=== PATIENT | male | born 1970 | race Caucasian/White ===

== ENCOUNTER 2018-06-06 06:49 | Inpatient (IN) | payer BC ==
--- NOTE | 2018-05-29 21:30 | HP ---
HISTORY AND PHYSICAL: DATE OF ADMISSION/SURGERY: 06/06/18 DATE OF OFFICE VISIT: 05/27/18 SURGEON: Vianey Guardado MD * (DICTATED BY NACHO FAIR) PROCEDURE: Left total hip arthroplasty. CHIEF COMPLAINT: Left hip pain. HISTORY OF PRESENT ILLNESS: Mr. Stone is a 47-year-old gentleman with continued complaints of left hip pain. He has failed conservative treatment and has elected to proceed with surgery which is scheduled for 06/06/[address] Guardado. PAST MEDICAL HISTORY: High cholesterol, anxiety, alcohol addiction, and COPD. PAST SURGICAL HISTORY: Oral surgery. CURRENT MEDICATIONS: 1. Lisinopril/hydrochlorothiazide 30 mg daily. 2. Escitalopram 20 mg daily. 3. Ibuprofen 800 mg as needed. 4. Zolpidem tartrate 10 mg q.h.s. 5. Propranolol 20 mg twice a day. 6. Amitriptyline. 7. Buspirone. 8. Amlodipine 5 mg daily. ALLERGIES: No known drug allergies. FAMILY HISTORY: Diabetes, cancer, RA, hypertension, and coronary artery disease. 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 He drinks approximately 2 to 3 alcoholic beverages per night. Denies the use of tobacco or illicit drugs. REVIEW OF SYSTEMS: A complete 14-point review of systems was reviewed with the patient. It was positive for COPD. He denies history of DVT, PE, hepatitis, HIV , or anesthesia problems. PHYSICAL EXAMINATION GENERAL: He is well developed, well nourished, in no acute distress. VITAL SIGNS: He stands 5 feet 7 inches tall, weighs 218 pounds. His blood pressure is 140/86 and his heart rate is 64. HEENT: Normocephalic, atraumatic. NECK: Supple. No palpable lymph nodes. PULMONARY: The lungs are clear to auscultation bilaterally. CARDIO: Regular rate and rhythm. Strong S1, S2. ABDOMEN: Soft, nontender, and nondistended. NEUROLOGICAL: He is alert and oriented x3. MUSCULOSKELETAL: Left lower extremity: The skin is intact. There are no open wounds or abrasions. He walks with an antalgic-type gait favoring his left hip. He has decreased internal and external rotation of the left hip. ASSESSMENT AND PLAN: Mr. Stone is a 47-year-old gentleman with continued complaints of left hip pain. He has failed conservative treatment and elected to proceed with a left total hip arthroplasty. His surgery is scheduled for 06/06/[address] Guardado discussed the risks and benefits of the surgery at today's visit and all of his questions were answered. He will follow up with Dr. Guardado 2 weeks after the surgery. NACHO FAIR [id number]/[facility] #: [id number]
[~2018-06-06 06:49] MED LIST: Buffered Lidocaine 0.9% SYRIN* 5 ML/SYR SYRINGE INTRADERM ONE; Dexamethasone IV* 4 MG/ML 1 ML (4 MG) IV SLOW PU ONE; Famotidine IV* 10 MG/ML 2 ML (20 mg) IV ONE; Gabapentin CAP(*) 300 MG PO ONE; Scopolamine 1.5 mg* PATCH TRANSDERM ONE; celeCOXIB CAP* 200 MG PO ONE
--- OUTSIDE RECORDS SUMMARY | 2018-06-06 06:52 | XMS REPORT | Continuity of Care Document ---
:1970 External Reference #:[id number] Author Name Salome Mcknight Care Team Providers Name Role Phone HCP/LW on file Primary Care Physician Unavailable Payers Type Date Identification Numbers Payment Provider Subscriber Effective: Policy Number: [facility] Omer Stone 2017 [id number] Ind/Ppo/Hmo/Pos PayID: [id number] [address] [place] [address] Advance Directives Description No Information Available Problems Date Description Provider Status Onset: 02/02/2014 Tobacco user Gurmeet Guy M.D. Active Onset: 02/02/2014 Difficulty breathing Gurmeet Guy M.D. Active Onset: 02/02/2014 Benign essential hypertension Gurmeet Guy M.D. Active Onset: 02/02/2014 Nondependent alcohol abuse in Gurmeet Guy M.D. Active remission Onset: 02/02/2014 Nondependent cocaine abuse in Gurmeet Guy M.D. Active remission Onset: 03/30/2015 Generalized anxiety disorder Gurmeet Guy M.D. Active Onset: 03/30/2015 Essential hypertension Gurmeet Guy M.D. Active Onset: 03/30/2015 Insomnia Gurmeet Guy M.D. Active Family History Date Family Member(s) Problem(s) Comments General Prostate Cancer Pat uncle Father CAD Had CABG in his late 50s Father Prostate Cancer in his 50s Mother General Health Good Children None Siblings 2 1 brother, 1 sister, both in good health. Social History Type Date Description Comments Sex Unknown Education Highest level completed, 11th grade Marital Status Single Lives With Cousin (Virginia Martinez) and cousin's daughter (Kiera). 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 Quit summer 2013. Smoking Status Reviewed: 03/30/15 Former Cigarette at peak smoked Smoker ~1.5ppd; started at age 12 and was smoking 1ppd by his mid teens. Quit summer 2013. ETOH Use 02/15/2018 Currently consumes 2 mixed vodka alcohol drinks/night, not measured but admittedly "good sized" shots; was a heavy drinker until he moved here from [place] in Recreational Drug Use 02/02/2014 Denies Drug Use Recreational Drug Use Former Drug User cocaine; stopped in , part of the reason for moving here from [place] Currently Active Patient is currently not sexually active Condom Use Uses Condoms Age [address] [place] 17 Years Old # Partners in a over 10 Lifetime Additional Info Sexual preference is women Allergies, Adverse Reactions, Alerts Description No Known Drug Allergies Medications Medication Date Status Form Strength Qnty SIG Indications Ordering Provider Buspirone HCL 05/20/ Active Tablets 10mg 1 tab by mouth F41.1 Silcoff, 2018 twice a day Gurmeet for anxiety M.D. Polyethylene 02/07/ Active Powder 3350NF 527uni use 07/03 cap K59.00 Silcoff, Glycol 3350 2015 ts full in 4 oz Gurmeet, of fluid every M.D. day; titrate as needed; for constipation Amlodipine 12/20/ Active Tablets 5mg 90tabs Take One I10 Silcoff, Besylate 2016 Tablet By Sherrill Levi Every M.D. Evening For High Blood Pressure Propranolol 09/16/ Active Tablets 20mg 60tabs Take One I10 Silcoff, HCL 2016 Tablet By Gurmeet Mouth Twice A M.D. Day For High Blood Pressure And Anxiety F41.1 Propranolol HCL 09/17/2015 Active Tablets 20mg 60tabs Take One I10 Silcoff, Tablet By Kindra Levi Mouth Twice A Day For High Blood Pressure And Anxiety F41.1 Propranolol HCL 09/17/2015 Active Tablets 20mg 60tabs Take One I10 Silcoff, Tablet By Kindra Levi Mouth Twice A Day For High Blood Pressure And Anxiety F41.1 Ibu 06/08/2015 Active Tablets 800mg 90tabs Take One M25.50 Sopchak, Tablet By Sherrill Granado D.O. Three Times A Day as Needed For Joint Pain Lisinopril-[place] 06/08/2015 Active Tablets 20-12.5m 180tabs Take Two I10 Silcoff, chlorothiazide g Tablets By Sherrill Levi.DBrady Every Morning For High Blood Pressure Amitriptyline 06/08/2015 Active Tablets 10mg 100tabs Take One G47.00 Silcoff, HCL Tablet By Sherrill Levi M.DBrady 30-60 Minutes Before Bed For Sleep- May Increase By 1 Tablet Every 3 Nights To A Max Of 5 Tablets Per Night Zolpidem 12/23/2014 Active Tablets 10mg 30tabs 1 by mouth G47.00 Silcoff, Tartrate every Gurmeet, night at M.D. bedtime as needed for sleep; you should only take this if you have 8 hours to devote to sleep Escitalopram 10/14/2014 Active Tablets 20mg 30tabs Take One F41.9 Silcoff, Oxalate Tablet By Sherrill Levi M.DBrady Every Day For Anxiety F41.1 Buspirone HCL 02/08/2016 Hx Tablets 10mg 180tabs Take Two Tablets F41.1 Silcoff, - By Mouth Three Gurmeet 05/21/2018 Times A Day For M.D. Anxiety Buspirone HCL 12/21/2015 Hx Tablets 10mg 120tabs 2 by mouth twice a F41.1 Silcoff, - day for anxiety Gurmeet, 02/08/2016 M.D. Viagra 12/21/2015 Hx Tablets 100mg 6tabs 1/2-1 by mouth N52.9 Silcoff, - every day as Gurmeet 05/20/2018 needed for M.D. erectile dysfunction; max 1 dose/day Propranolol HCL 08/04/2015 Hx Tablets 40mg 30tabs Taje 1/2 Tablet By I10 Malena, - Mouth Two Times A Gurmeet, 09/17/2015 Day For Blood M.D. Pressure And Anxiety F41.1 Buspirone HCL 06/08/2015 - Hx Tablets 10mg 60tabs Take 1+1/2 F41.1 Silcoff, 12/21/2015 Tablets By Kindra Levi Mouth Two Times A Day For Anxiety Buspirone HCL 03/30/2015 - Hx Tablets 10mg 60tabs 1/2 by mouth F41.1 Silcomaite, 06/08/2015 twice a day Kindra Levi for 1-2 weeks then increase to 1 pill 2x/day; for anxiety PT For Right 12/23/2014 - Hx evaluate and 719.41 Silemma, Shoulder Pain 03/25/2015 treat, Kindra Levi And Tennis modalities as Elbow needed, instruct in hep 726.32 726.10 Ibuprofen 12/22/2014 - Hx Tablets 200mg OTC taking 2 Unknown 06/08/2015 tab to 4 tab with a snack for your pain as needed Escitalopram 09/02/2014 - Hx Tablets 10mg 30tabs 1/2 by 300. Silcoff, Oxalate 10/14/2014 mouth every 00 Gurmeet, day for 1 M.D. week then 1 tablet daily; for anxiety Chantix 09/02/2014 - Hx Tablets 1mg 1/2 by 305. Silcoff, 10/03/2014 mouth twice 1 Gurmeet, a day for M.D. 2wks then 1/2 tab in am only until supply runs out Dulera 09/02/2014 - Hx Aerosol 100-5mcg/ 120samp 2 puffs 786. Silcoff, 10/03/2014 Act le twice a day 09 Gurmeet (gargle M.D. after use) 493.10 Spiriva 09/02/2014 - Hx Capsules 18mcg 10samples inhale the 786.09 Malena Handihaler 10/14/2014 contents of Gurmeet 1 capsule M.D. daily; try this after finishing Dulera 493.10 Lisinopril-Hydrochlorothiazide 09/02/2014 Hx Tablets 20-25mg 90tabs Take One I10 Silcomaite, - Tablet By Gurmeet, 06/08/2015 Mouth M.D. Every Morning For High Blood Pressure Zolpidem Tartrate 06/19/2014 Hx Tablets 10mg 15tabs 1 by 780. Taniacoff, - mouth 52 Gurmeet, 12/23/2014 every M.D. other night at bedtime as needed for sleep; you should only take this if you have 8 hours to sleep Lisinopril-Hydrochlorothiazide 05/11/2014 Hx Tablets 10-12.5m 30tabs 1 by 401. Malena, - g mouth 1 Gurmeet, 09/02/2014 every M.DBrady morning for high blood pressure Flovent Diskus 05/11/2014 Hx Aerosol 250mcg/B 60units 1 puff 786. Malena, - list 2x/day; Gurmeet, 09/02/2014 gargle M.D. after use 493.10 Trazodone HCL 05/11/2014 - Hx Tablets 50mg 60tabs 1/2-2 by 780.52 Silcoff, 05/29/2014 mouth every Kindra Levi night at bedtime as needed for sleep (take it 1/2-1hr before bed) Advair Diskus 03/09/2014 - Hx Aerosol 250-50mc 60units inhale 1 786.09 Taniacoff, 05/11/2014 g/Dose puff twice Kindra Levi daily; gargle after use 493.10 Chantix 03/09/2014 - Hx Tablets 1[facility] 45tabs [facility] and 1/2 Kindra Levi pill every late night/early paula (ideally after breakfast and supper); take w/ a lot of water No Active 02/02/2014 - Hx Unknown Medications 02/02/2014 Chantix 02/02/2014 - Hx Tablets 1mg 60tabs 1/2 pill once 305.1 Silcoff, 03/09/2014 daily for 3 Kindra Levi days then 1/2 pill twice daily for 4 days then 1 pill twice daily Immunizations CPT Code Status Date Vaccine Lot # 61893 Given 05/21/2018 Influenza Virus Vaccine, Quadrivalent, Split, [id number] Preservative Free 74997 Given 08/17/2017 Influenza Virus Vaccine, Quadrivalent, Split, [id number] Preservative Free 44336 Given 04/17/2016 Influenza Virus Vaccine, Quadrivalent, Split, [id number] Preservative Free 23770 Given 06/08/2015 Influenza Virus Vaccine, Quadrivalent, Split, [id number] Preservative Free 98442 Given 03/09/2014 Pneumococcal Immunization [id number] 91115 Given 03/09/2014 Influenza Virus Vaccine, Quadrivalent, Split, [id number] Preservative Free 56761 Given 02/15/2010 Adacel or Boostrix, TDaP Vital Signs Date Vital Result Comment 05/21/2018 10:58am BP Systolic 142 mmHg BP Diastolic 94 mmHg BP Systolic Recheck 150 mmHg R arm sitting BP Diastolic Recheck 86 mmHg R arm sitting Heart Rate 60 /min reg Respiratory Rate 14 /min not laboured Height 66.75 inches 5'6.75" Weight 209.00 lb BMI (Body Mass Index) 33.0 kg/m2 02/15/2018 8:55am BP Systolic 112 mmHg BP Diastolic 78 mmHg BP Systolic Recheck 124 mmHg R arm sitting BP Diastolic Recheck 80 mmHg R arm sitting Weight 223.00 lb with sneakers 08/17/2017 8:58am BP Systolic 140 mmHg BP Diastolic 74 mmHg BP Systolic Recheck 134 mmHg R arm sitting BP Diastolic Recheck 82 mmHg R arm sitting Heart Rate 60 /min reg Height 67 inches 5'7" Weight 218.00 lb BMI (Body Mass Index) 34.1 kg/m2 01/30/2017 11:32am BP Systolic 110 mmHg BP Diastolic 60 mmHg Height 68.5 inches 5'8.50" with sneakers Weight 214.00 lb with sneakers BMI (Body Mass Index) 32.1 kg/m2 07/25/2016 8:44am BP Systolic 140 mmHg BP Diastolic 82 mmHg BP Systolic Recheck 132 mmHg R arm sitting BP Diastolic Recheck 84 mmHg R arm sitting Height 68.5 inches 5'8.50" with shoes Weight 214.00 lb with shoes BMI (Body Mass Index) 32.1 kg/m2 04/17/2016 9:14am BP Systolic 128 mmHg BP Diastolic 82 mmHg BP Systolic Recheck 134 mmHg R arm sitting BP Diastolic Recheck 86 mmHg R arm sitting Weight 214.00 lb with work boots 02/08/2016 8:40am BP Systolic 130 mmHg BP Diastolic 80 mmHg BP Systolic Recheck 130 mmHg R arm sitting BP Diastolic Recheck 82 mmHg R arm sitting Weight 206.00 lb w/shoes 12/21/2015 8:36am BP Systolic 138 mmHg BP Diastolic 90 mmHg BP Systolic Recheck 152 mmHg R arm sitting BP Diastolic Recheck 90 mmHg R arm sitting Heart Rate 60 /min reg Height 68 inches 5'8" with sneakers Weight 207.00 lb with sneakers BMI (Body Mass Index) 31.5 kg/m2 09/17/2015 9:11am BP Systolic 116 mmHg BP Diastolic 80 mmHg BP Systolic Recheck 128 mmHg R arm sitting BP Diastolic Recheck 84 mmHg R arm sitting Heart Rate 64 /min reg Weight 207.00 lb boots on 08/04/2015 8:59am BP Systolic 138 mmHg BP Diastolic 90 mmHg BP Systolic Recheck 150 mmHg R arm sitting BP Diastolic Recheck 98 mmHg R arm sitting Heart Rate 74 /min reg Weight 204.00 lb with boots 06/08/2015 8:47am BP Systolic 148 mmHg BP Diastolic 85 mmHg BP Systolic Recheck 160 mmHg R arm sitting BP Diastolic Recheck 92 mmHg R arm sitting Heart Rate 64 /min reg Weight 197.50 lb with boots 03/30/2015 8:30am BP Systolic 140 mmHg BP Diastolic 82 mmHg Weight 192.00 lb w/workboots 12/23/2014 8:27am BP Systolic 138 mmHg BP Diastolic 80 mmHg Weight 187.00 lb w/shoes 10/14/2014 9:39am BP Systolic 142 mmHg BP Diastolic 82 mmHg BP Systolic Recheck 138 mmHg R arm sitting BP Diastolic Recheck 80 mmHg R arm sitting Height 67 inches 5'7" Weight 190.00 lb BMI (Body Mass Index) 29.8 kg/m2 09/02/2014 8:47am BP Systolic 166 mmHg BP Diastolic 90 mmHg Weight 185.50 lb dec taking off boots 06/19/2014 9:33am BP Systolic 160 mmHg BP Diastolic 80 mmHg BP Systolic Recheck 152 mmHg R arm sitting BP Diastolic Recheck 78 mmHg R arm sitting Weight 191.00 lb w/work boots. 180 at home per pt 05/11/2014 11:29am BP Systolic 180 mmHg BP Diastolic 98 mmHg BP Systolic Recheck 184 mmHg R arm sitting BP Diastolic Recheck 96 mmHg R arm sitting Weight 187.00 lb w/boots 03/09/2014 10:07am BP Systolic 158 mmHg BP Diastolic 86 mmHg BP Systolic Recheck 158 mmHg R arm sitting BP Diastolic Recheck 86 mmHg R arm sitting Weight 179.00 lb Shoes on 02/02/2014 2:34pm BP Systolic 150 mmHg BP Diastolic 88 mmHg BP Systolic Recheck 160 mmHg R arm sitting BP Diastolic Recheck 80 mmHg R arm sitting Heart Rate 80 /min reg Respiratory Rate 12 /min not laboured Height 66.50 inches 5'6.50" Weight 166.00 lb BMI (Body Mass Index) 26.4 kg/m2 Results Test Date Facility Test Result H/L Range Note Urine Micro Inhouse 05/21/2018 In House [facility] WBC 3 1 [facility]a RBC - [facility]a Casts - Ua Epi - Ua Other - Ua Glucose - Ua Bilirubin - Ua Ketones - Ua Specific Marquez 1.010 Ua Blood - Ua PH 5.0 Ua Protein - Ua Urobilinogen - Ua Nitrite - Ua Leukocytes tr Basic Metabolic Panel 05/21/2018 [facility] Sodium 137 mmol/L N 135- 145 [phone] Chloride 102 mmol/L N 101-111 Co2 Carbon Dioxide 29 mmol/L N 22-32 Glucose 116 mg/dL High 70-100 Blood Urea Nitrogen 33 mg/dL High 6-24 Creatinine 1.55 mg/dL High 0.67-1.17 BUN/Creatinine Ratio 21.3 High 8-20 Calcium 9.9 mg/dL N 8.6-10.3 Egfr Non- 48.7 >60 Egfr 59.0 >60 2 Potassium 5.1 mmol/L High 3.5-5.0 Anion Gap 6 mmol/L N 2-11 CBC Auto Diff 05/21/2018 [facility] White Blood Count 7.3 10^3/uL N 3.5-10.8 [phone] Red Blood Count 4.70 10^6/uL N 4.00-5.40 Hemoglobin 15.1 g/dL N 14.0-18.0 Hematocrit 43 % N 42-52 Mean Corpuscular Volume 92 fL N 80-94 Mean Corpuscular Hemoglobin 32 pg High 27-31 Mean Corpuscular HGB Conc 35 g/dL N 31-36 Red Cell Distribution Width 13 % N 10.5-15 Platelet Count 274 10^3/uL N 150-450 Mean Platelet Volume 8.7 fL N 7.4-10.4 Abs Neutrophils 4.7 10^3/uL N 1.5-7.7 Abs Lymphocytes 1.7 10^3/uL N 1.0-4.8 Abs Monocytes 0.6 10^3/uL N 0-0.8 Abs Eosinophils 0.3 10^3/uL N 0-0.6 Abs Basophils 0 10^3/uL N 0-0.2 Abs Nucleated RBC 0 10^3/uL Granulocyte % 63.8 % N 38-83 Lymphocyte % 23.1 % Low 25-47 Monocyte % 8.4 % High 0-7 Eosinophil % 4.1 % N 0-6 Basophil % 0.6 % N 0-2 Nucleated Red Blood Cells % 0.1 Laboratory test 02/06/2018 [facility] LDL Cholesterol Direct 92 mg/dL 3 finding [phone] Lipid Profile 02/06/2018 [facility] Triglycerides 666 mg/dL 4 (Trig/Chol/HDL) [phone] Cholesterol 261 mg/dL 5 HDL Cholesterol 36.5 mg/dL 6 LDL Cholesterol (SEE NOTE) mg/dL 7 Basic Metabolic Panel 02/06/2018 [facility] Sodium 136 mmol/L N 135- 145 [phone] Potassium 4.7 mmol/L N 3.5-5.0 Chloride 104 mmol/L N 101-111 Co2 Carbon Dioxide 26 mmol/L N 22-32 Anion Gap 6 mmol/L N 2-11 Glucose 102 mg/dL High 70-100 Blood Urea Nitrogen 27 mg/dL High 6-24 Creatinine 1.32 mg/dL High 0.67-1.17 BUN/Creatinine Ratio 20.5 High 8-20 Calcium 9.6 mg/dL N 8.6-10.3 Egfr Non- 58.7 >60 Egfr 71.0 >60 8 Urine Micro Inhouse 08/17/2017 In House Ua WBC - 9 Ua RBC - Ua Casts - Ua Epi - Ua Other - Ua Glucose - Ua Bilirubin - Ua Ketones - Ua Specific Marquez 1.020 Ua Blood - Ua PH 6.0 Ua Protein - Ua Urobilinogen - Ua Nitrite - Ua Leukocytes - Urine Micro Inhouse 04/17/2016 In House Ua WBC - 10 Ua RBC - Ua Casts - Ua Epi - Ua Other - Ua Glucose - Ua Bilirubin - Ua Ketones - Ua Specific Marquez 1.025 Ua Blood - Ua PH 6.0 Ua Protein - Ua Urobilinogen - Ua Nitrite - Ua Leukocytes - Basic Metabolic Panel 04/17/2016 [facility] Sodium 137 mmol/L N 133- 145 [phone] Potassium 4.6 mmol/L N 3.5-5.0 Chloride 103 mmol/L N 101-111 Co2 Carbon Dioxide 30 mmol/L N 22-32 Anion Gap 4 mmol/L N 2-11 Glucose 106 mg/dL High 70-100 Blood Urea Nitrogen 22 mg/dL N 6-24 Creatinine 1.06 mg/dL N 0.67-1.17 BUN/Creatinine Ratio 20.8 High 8-20 Calcium 9.4 mg/dL N 8.6-10.3 Egfr Non- 76.3 N >60 Egfr 98.1 N >60 11 Urine Micro Inhouse 03/30/2015 In House Ua WBC - 12 Ua RBC - Ua Casts - Ua Epi - Ua Other - Ua Glucose - Ua Bilirubin - Ua Ketones - Ua Specific Marquez 1.010 Ua Blood - Ua PH 6.0 Ua Protein - Ua Urobilinogen - Ua Nitrite - Ua Leukocytes - Basic Metabolic Panel 09/25/2014 [facility] Sodium 136 mmol/L N 133- 145 [phone] Potassium 3.7 mmol/L N 3.5-5.0 Chloride 102 mmol/L N 101-111 Co2 Carbon Dioxide 27 mmol/L N 22-32 Anion Gap 7 mmol/L N 2-11 Glucose 117 mg/dL High 70-100 Blood Urea Nitrogen 19 mg/dL N 6-24 Creatinine 0.85 mg/dL N 0.67-1.17 BUN/Creatinine Ratio 22.4 High 8-20 Calcium 9.1 mg/dL N 8.6-10.3 Egfr Non- 98.8 N >60 Egfr 127.1 N >60 13 Basic Metabolic Panel 06/05/2014 [facility] Sodium 136 mmol/L N 133- 145 [phone] Potassium 4.3 mmol/L N 3.5-5.0 Chloride 102 mmol/L N 101-111 Co2 Carbon Dioxide 27 mmol/L N 22-32 Anion Gap 7 mmol/L N 2-11 Glucose 104 mg/dL High 70-100 Blood Urea Nitrogen 22 mg/dL N 6-24 Creatinine 0.92 mg/dL N 0.67-1.17 BUN/Creatinine Ratio 23.9 High 8-20 Calcium 9.4 mg/dL N 8.6-10.3 Egfr Non- 90.7 N >60 Egfr 116.6 N >60 14 Lipid Profile 02/03/2014 [facility] Triglycerides 160 mg/dL N 15 (Trig/Chol/HDL) [phone] Cholesterol 169 mg/dL N 16 HDL Cholesterol 42.9 mg/dL N 17 LDL Cholesterol 94 mg/dL N 18 Laboratory test finding 02/03/2014 [facility] Uric Acid 6.2 mg/dL N 4.4-7.6 [phone] Basic Metabolic Panel 02/03/2014 [facility] Sodium 140 mmol/L N 133- 145 [phone] Potassium 4.2 mmol/L N 3.7-5.6 Chloride 106 mmol/L N 101-111 Co2 Carbon Dioxide 27 mmol/L N 22-32 Anion Gap 7 mmol/L N 2-11 Glucose 98 mg/dL N 70-100 Blood Urea Nitrogen 17 mg/dL N 6-24 Creatinine 0.83 mg/dL N 0.67-1.17 BUN/Creatinine Ratio 20.5 High 8-20 Calcium 9.3 mg/dL N 8.6-10.3 Egfr Non- 102.1 N >60 Egfr 131.3 N >60 19 CBC Auto Diff 02/03/2014 [facility] White Blood Count 9.5 10^3/uL N 4.8-10.8 [phone] Red Blood Count 4.53 10^6/uL N 4.0-5.4 Hemoglobin 14.2 g/dL N 14.0-18.0 Hematocrit 41 % Low 42-52 Mean Corpuscular Volume 90 fL N 80-94 Mean Corpuscular Hemoglobin 31 pg N 27-31 Mean Corpuscular HGB Conc 35 g/dL N 31-36 Red Cell Distribution Width 14 % N 10.5-15 Platelet Count 296 10^3/uL N 150-450 Mean Platelet Volume 8 um3 N 7.4-10.4 Abs Neutrophils 6.5 10^3/uL N 1.5-7.7 Abs Lymphocytes 2.0 10^3/uL N 1.0-4.8 Abs Monocytes 0.5 10^3/uL N 0-0.8 Abs Eosinophils 0.4 10^3/uL N 0-0.6 Abs Basophils 0.1 10^3/uL N 0-0.2 Abs Nucleated RBC 0 10^3/uL N Granulocyte % 69.0 % N 38-83 Lymphocyte % 21.6 % Low 25-47 Monocyte % 5.1 % N 1-9 Eosinophil % 3.7 % N 0-6 Basophil % 0.6 % N 0-2 Nucleated Red Blood Cells % 0 N Urine Micro Inhouse 02/02/2014 In House Ua WBC - Ua RBC - Ua Casts - Ua Epi - Ua Other - Ua Glucose - Ua Bilirubin - Ua Ketones - Ua Specific Marquez 1.005 Ua Blood - Ua PH 7.5 Ua Protein - Ua Urobilinogen - Ua Nitrite - Ua Leukocytes - 1 void, clear, gold 2 Because ethnic data is not always readily available, this report includes an eGFR for both -Americans and non- Americans. The National Kidney Disease Education Program (NKDEP) does not endorse the use of the MDRD equation for patients that are not between the ages of 18 and 70, are , have extremes of body size, muscle mass, or nutritional status, or are non- or non-. According to the National Kidney Foundation, irrespective of diagnosis, the stage of the disease is based on the level of kidney function: Stage Description GFR(mL/min/1.73 m(2)) 1 Kidney damage with normal or decreased GFR 90 2 Kidney damage with mild decrease in GFR 60-89 3 Moderate decrease in GFR 30-59 4 Severe decrease in GFR 15-29 5 Kidney failure <15 (or dialysis) 3 Desirable: <100 Near Optimal: 100-129 Borderline High: 130-159 High: 160-189 Very High: >189 4 Desirable: <150 Borderline High: 150-199 High: 200-499 Very High: >500 5 Desirable: <200 Borderline High: 200-239 High: >239 6 Low: <40 Desirable: 40-60 High: >60 7 Unable to calculate LDL as triglyceride is > 400 8 Because ethnic data is not always readily available, this report includes an eGFR for both -Americans and non- Americans. The National Kidney Disease Education Program (NKDEP) does not endorse the use of the MDRD equation for patients that are not between the ages of 18 and 70, are , have extremes of body size, muscle mass, or nutritional status, or are non- or non-. According to the National Kidney Foundation, irrespective of diagnosis, the stage of the disease is based on the level of kidney function: Stage Description GFR(mL/min/1.73 m(2)) 1 Kidney damage with normal or decreased GFR 90 2 Kidney damage with mild decrease in GFR 60-89 3 Moderate decrease in GFR 30-59 4 Severe decrease in GFR 15-29 5 Kidney failure <15 (or dialysis) 9 void, clear, yellow 10 void, dark yellow 11 Because ethnic data is not always readily available, this report includes an eGFR for both -Americans and non- Americans. The National Kidney Disease Education Program (NKDEP) does not endorse the use of the MDRD equation for patients that are not between the ages of 18 and 70, are , have extremes of body size, muscle mass, or nutritional status, or are non- or non-. According to the National Kidney Foundation, irrespective of diagnosis, the stage of the disease is based on the level of kidney function: Stage Description GFR(mL/min/1.73 m(2)) 1 Kidney damage with normal or decreased GFR 90 2 Kidney damage with mild decrease in GFR 60-89 3 Moderate decrease in GFR 30-59 4 Severe decrease in GFR 15-29 5 Kidney failure <15 (or dialysis) 12 void, clear, yellow 13 Because ethnic data is not always readily available, this report includes an eGFR for both -Americans and non- Americans. The National Kidney Disease Education Program (NKDEP) does not endorse the use of the MDRD equation for patients that are not between the ages of 18 and 70, are , have extremes of body size, muscle mass, or nutritional status, or are non- or non-. According to the National Kidney Foundation, irrespective of diagnosis, the stage of the disease is based on the level of kidney function: Stage Description GFR(mL/min/1.73 m(2)) 1 Kidney damage with normal or decreased GFR 90 2 Kidney damage with mild decrease in GFR 60-89 3 Moderate decrease in GFR 30-59 4 Severe decrease in GFR 15-29 5 Kidney failure <15 (or dialysis) 14 Because ethnic data is not always readily available, this report includes an eGFR for both -Americans and non- Americans. The National Kidney Disease Education Program (NKDEP) does not endorse the use of the MDRD equation for patients that are not between the ages of 18 and 70, are , have extremes of body size, muscle mass, or nutritional status, or are non- or non-. According to the National Kidney Foundation, irrespective of diagnosis, the stage of the disease is based on the level of kidney function: Stage Description GFR(mL/min/1.73 m(2)) 1 Kidney damage with normal or decreased GFR 90 2 Kidney damage with mild decrease in GFR 60-89 3 Moderate decrease in GFR 30-59 4 Severe decrease in GFR 15-29 5 Kidney failure <15 (or dialysis) 15 Desirable <150 Borderline high 150-199 High 200-499 Very High >500 16 Desirable <200 Borderline high 200-239 High >239 17 Low <40 Desirable: 40-60 High: >60 18 Desirable <100 Near Optimal 100-129 Borderline high 130-159 High 160-189 Very High >189 19 Because ethnic data is not always readily available, this report includes an eGFR for both -Americans and non- Americans. The National Kidney Disease Education Program (NKDEP) does not endorse the use of the MDRD equation for patients that are not between the ages of 18 and 70, are , have extremes of body size, muscle mass, or nutritional status, or are non- or non-. According to the National Kidney Foundation, irrespective of diagnosis, the stage of the disease is based on the level of kidney function: Stage Description GFR(mL/min/1.73 m(2)) 1 Kidney damage with normal or decreased GFR 90 2 Kidney damage with mild decrease in GFR 60-89 3 Moderate decrease in GFR 30-59 4 Severe decrease in GFR 15-29 5 Kidney failure <15 (or dialysis) Procedures Date Code Description Status 05/21/2018 87069 Electrocardiogram Complete Completed 08/17/2017 68486 Electrocardiogram Complete Completed 01/30/2017 65168 X-Ray Wrist Three Views Completed 07/25/2016 55921 Electrocardiogram Complete Completed 06/08/2015 33612 Electrocardiogram Complete Completed 02/02/2014 65090 Bronchospasm Evaluation Pre & Post Completed 02/02/2014 61666 Electrocardiogram Complete Completed 02/02/2014 81949 X-Ray Chest Two Views Completed Encounters Type Date Location Provider Dx Diagnosis Office Visit 05/21/2018 Main Office Gurmeet Guy, Z01.818 Encounter for other 10:30a M.D. preprocedural examination M25.552 Pain in left hip M16.12 Unilateral primary osteoarthritis, left hip I10 Essential (primary) hypertension F41.1 Generalized anxiety disorder N18.3 Chronic kidney disease, stage 3 (moderate) Z23 Encounter for immunization Office Visit 02/15/2018 8:55a Main Office Gurmeet Guy, M25.552 Pain in left M.D. hip L29.0 Pruritus ani I10 Essential (primary) hypertension F41.1 Generalized anxiety disorder G47.00 Insomnia, unspecified N18.3 Chronic kidney disease, stage 3 (moderate) E78.1 Pure hyperglyceridemia Office Visit 08/17/2017 9:15a Main Office Gurmeet Guy I10 Essential (primary) M.D. hypertension F41.1 Generalized anxiety disorder G47.00 Insomnia, unspecified R53.83 Other fatigue R06.83 Snoring Z23 Encounter for immunization Z68.34 Body mass index (BMI) 34.0-34.9, adult Office Visit 01/30/2017 11:00a Main Office Gurmeet Guy I10 Essential (primary) M.D. hypertension F41.1 Generalized anxiety disorder G47.00 Insomnia, unspecified K59.00 Constipation, unspecified M25.531 Pain in right wrist M79.644 Pain in right finger(s) Z13.220 Encounter for screening for lipoid disorders Office Visit 07/25/2016 8:30a Main Office Gurmeet Guy I10 Essential (primary) M.D. hypertension F41.1 Generalized anxiety disorder G47.00 Insomnia, unspecified K59.00 Constipation, unspecified K62.9 Disease of anus and rectum, unspecified Z79.899 Other snf (current) drug therapy Office Visit 02/08/2016 8:45a Main Office Gurmeet Guy I10 Essential (primary) M.D. hypertension F41.1 Generalized anxiety disorder G47.00 Insomnia, unspecified K59.00 Constipation, unspecified Office Visit 12/21/2015 8:30a Main Office Gurmeet Guy I10 Essential (primary) M.D. hypertension F41.1 Generalized anxiety disorder G47.00 Insomnia, unspecified N52.9 Male erectile dysfunction, unspecified Office Visit 09/17/2015 9:15a Main Office Gurmeet Guy, F41.1 Generalized anxiety M.D. disorder I10 Essential (primary) hypertension Office Visit 08/04/2015 8:55a Main Office Gurmeet Guy, F41.1 Generalized anxiety M.D. disorder G47.00 Insomnia, unspecified I10 Essential (primary) hypertension Office Visit 06/08/2015 8:45a Main Office Gurmeet Guy, I10 Essential (primary) M.D. hypertension F41.1 Generalized anxiety disorder G47.00 Insomnia, unspecified M25.50 Pain in unspecified joint Z23 Encounter for immunization Office Visit 03/30/2015 8:30a Main Office Gurmeet Guy, I10 Essential (primary) M.D. hypertension F41.1 Generalized anxiety disorder G47.00 Insomnia, unspecified Office Visit 12/23/2014 8:30a Main Office Gurmeet Guy, 719.41 Pain Joint M.D. Shoulder Region 726.10 Bursae & Tendon Disorders Shoulder Region Unspec 401.1 Hypertension Benign 300.00 Anxiety State Unspec 780.52 Insomnia Unspecified 726.32 Epicondylitis Lateral Office Visit 10/14/2014 9:30a Main Office Gurmeet Guy, 401.1 Hypertension Benign M.D. 780.52 Insomnia Unspecified 300.00 Anxiety State Unspec 786.09 Dyspnea & Respiratory Abnormalities Other Office Visit 09/02/2014 8:45a Main Office Gurmeet Guy, 401.1 Hypertension Benign M.D. 305.1 Tobacco Use Disorder 780.52 Insomnia Unspecified 300.00 Anxiety State Unspec 786.09 Dyspnea & Respiratory Abnormalities Other 493.10 Asthma Intrinsic Unspecified Office Visit 06/19/2014 9:30a Main Office Gurmeet Guy, 401.1 Hypertension Benign M.D. 305.1 Tobacco Use Disorder 786.09 Dyspnea & Respiratory Abnormalities Other 780.52 Insomnia Unspecified Office Visit 05/11/2014 11:00a Main Office Gurmeet Guy, 401.1 Hypertension Benign M.D. 305.1 Tobacco Use Disorder 786.09 Dyspnea & Respiratory Abnormalities Other 780.52 Insomnia Unspecified Office Visit 03/09/2014 10:15a Main Office Malena 786.09 Dyspnea & Kindra Levi Respiratory Abnormalities Other 305.1 Tobacco Use Disorder 401.1 Hypertension Benign 493.10 Asthma Intrinsic Unspecified V03.82 Streptococcus Pneumoniae Vaccination Spec Other V04.81 Need For Prophylactic Vaccination & Inoculation/Influenza V07.2 Prophylactic Immunotherapy Office Visit 02/02/2014 2:00p Main Office Malena 786.09 Dyspnea & Kindra Levi Respiratory Abnormalities Other 305.1 Tobacco Use Disorder 786.2 Cough 401.1 Hypertension Benign V77.91 Screening For Lipoid Disorders 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 at [facility]5/21/2018 - Gurmeet Guy M.D.Z01.818 Encounter for other preprocedural examinationComments:~B_Luca has longstanding, progressive and debilitating L hip pain secondary to advanced OA. He has longstanding hypertension which is well controlled with a white coat component. He has longstanding mood disorder, predominantly anxiety, and is doing relatively well. He is medically stable and w/o overt signs or symptoms concerning for coronary disease. Pt may proceed with the planned surgery withoutneed for further cardiac testing. Labs pending.~b_Follow up:Cancel Aug appt, reschedule for ~6mo from now (w/o EKG or labs in advance)M25.552 Pain in left hipM16.12 Unilateral primary osteoarthritis, left hipI10 Essential (primary) eyzkkyoheborG24.1 Generalized anxiety pzkobhnmB86.3 Chronic kidney disease, stage 3 (moderate)Z23 Encounter for immunizationComments:Encouraged flu vaccine wc was accepted. VIS provided.
--- OUTSIDE RECORDS SUMMARY | 2018-06-06 06:52 | XMS REPORT | Continuity of Care Document ---
:1970 External Reference #:[id number] Author Name Dipika Daniel Care Team Providers Name Role Phone Gurmeet Guy MD Primary Care Physician Unavailable Payers Type Date Identification Numbers Payment Provider Subscriber Policy Number: [id number] [employer] Omer Stone PayID: [id number] [address] [address] [place] [address] Effective: 2014 Policy Number: [facility] [employer] Omer Stone [id number] Onset: 2014 Group Number: [id number] [phone] [address] [address] PayID: [place] [address] Advance Directives Description No Information Available Problems Date Description Provider Status Onset: 03/13/2018 Localized, primary osteoarthritis of Vianeyhelena Guardado M.D. Active the pelvic region and thigh Onset: 01/11/2015 Lateral epicondylitis Keanu Carter M.D. Active Onset: 01/11/2015 Disorder of shoulder Keanu Carter M.D. Active Onset: 01/11/2015 Sprain of elbow and forearm Keanu Carter M.D. Active Onset: 01/11/2015 Sprain of shoulder and upper arm Keanu Carter M.D. Active Onset: 01/11/2015 Closed Colles' fracture Keanu Carter M.D. Active Onset: 01/11/2015 Disorder of bursa of shoulder region Keanu Carter M.D. Active Onset: 01/11/2015 Wrist joint pain Keanu Carter M.D. Active Onset: 01/11/2015 Shoulder joint pain Keanu Carter M.D. Active Family History Date Family Member(s) Problem(s) Comments General Heart Disease General Cancer General Diabetes General Hypertension Social History Type Date Description Comments Sex Unknown Lives With Alone Occupation [employer] ETOH Use Occasionally consumes alcohol Tobacco Use Start: Unknown End: Patient is a former smoker Quit 2013 Unknown Smoking Status Reviewed: 05/27/18 Patient is a former smoker Quit 2013 Exercise Type/Frequency Exercises regularly Allergies, Adverse Reactions, Alerts Description No Known Drug Allergies Medications Medication Date Status Form Strength Qnty SIG Indications Ordering Provider Lisinopril-[place] Active Tablets 30mg 1 by mouth Unknown chlorothiazide 000 every day Escitalopram Active Tablets 20mg 1 by mouth Unknown Oxalate 000 every day Ibuprofen Active Tablets 800mg as needed Unknown 000 Zolpidem Active Tablets 10mg 1 by mouth Unknown Tartrate 000 tablet at bedtime as needed Propranolol HCL Active Tablets 20mg take one Unknown 000 tablet by mouth twice a day Amitriptyline Active Unknown HCL 000 Buspirone HCL Active Unknown 000 Amlodipine Active Tablets 5mg 1 by mouth Unknown Besylate 000 every day Sleeping Hx qhs Unknown Pill-Doesn't 000 - Know What 018 Immunizations Description No Information Available Vital Signs Date Vital Result Comment 05/27/2018 8:52am Height 67 inches 5'7" Weight 218.00 lb Heart Rate 64 /min BP Systolic 140 mmHg BP Diastolic 86 mmHg BMI (Body Mass Index) 34.1 kg/m2 03/13/2018 8:06am Height 67 inches 5'7" Weight 221.00 lb BP Systolic 134 mmHg BP Diastolic 74 mmHg Respiratory Rate 16 /min Body Temperature 96.5 F Pain Level 5 BMI (Body Mass Index) 34.6 kg/m2 02/22/2015 2:46pm Height 67 inches 5'7" Weight 183.00 lb Pain Level 3 BMI (Body Mass Index) 28.7 kg/m2 01/25/2015 4:20pm Height 67 inches 5'7" Weight 183.00 lb Pain Level 8 BMI (Body Mass Index) 28.7 kg/m2 01/11/2015 11:53am Height 67 inches 5'7" Weight 183.00 lb Heart Rate 62 /min BP Systolic Sitting 136 mmHg BP Diastolic Sitting 89 mmHg Pain Level 8 BMI (Body Mass Index) 28.7 kg/m2 Results Test Date Facility Test Result H/L Range Note CBC Auto Diff 05/21/2018 [facility] White Blood 7.3 10^3/uL N 3.5-10.[address] [place] [address] [phone] Red Blood Count 4.70 10^6/uL N 4.00-5.40 [...] 0-2 Nucleated Red Blood Cells % 0.1 Basic Metabolic Panel 05/21/2018 [facility] Sodium 137 mmol/L N 135-[address] [place] [address] [phone] Chloride 102 mmol/L N 101-111 Co2 Carbon Dioxide 29 mmol/L N 22-32 Glucose 116 mg/dL High 70-100 Blood Urea Nitrogen 33 mg/dL High 6-24 Creatinine 1.55 mg/dL High 0.67-1.17 BUN/Creatinine Ratio 21.3 High 8-20 Calcium 9.9 mg/dL N 8.6-10.3 Egfr Non- 48.7 >60 Egfr 59.0 >60 1 Potassium 5.1 mmol/L High 3.5-5.0 Anion Gap 6 mmol/L N 2-11 Urine Culture And 05/21/2018 [facility] Urine Culture SEE RESULT 2, [address] BELOW [place] [id number] [phone] 1 Because ethnic data is not always readily [...] 15-29 5 Kidney failure <15 (or dialysis) 2 [id number] 3 SEE RESULT BELOW Name: OMER STONE : [address]: Gurmeet Guy MD Acct: [id number] Unit: [id number] AGE: 47 Location: [facility] Re05/21/18 SEX: M Status: REG REF SPEC: [id number] [place]: 05/21/18-[address]: Gurmeet Guy MD REQ: [id number] RECD: 05/21/18-1323 EXPLICIT FAX#: [id number], [id number] STATUS: COMP OTHR DR: Vianey Guardado MD _ SOURCE: URINE SPDESC: ORDERED: Urine Culture COMMENTS: [id number] QUERIES: Urine Source: Random Procedure Result Reported Site Urine Culture Final 05/22/18- 1208 ML No Growth (<1,000 CFU/mL) * ML - Main Lab . END OF REPORT DEPARTMENT OF PATHOLOGY, [address] [place] [address] Angel Williamson M.D. Director [facility] # [id number] Procedures Description No Information Available Encounters Type Date Location Provider Dx Diagnosis Office Visit 03/13/2018 [facility] Vianey Guardado, M25.552 Pain in left hip 8:00a [facility] M16.12 Unilateral primary osteoarthritis, left hip Office Visit 02/22/2015 2:45p Orthopedic Keanu Sanford 719.41 [facility] M.D. Shoulder Region 719.43 Pain Joint Forearm 726.10 Bursae & Tendon Disorders Shoulder Region Unspec 840.8 Sprains & Strains Shoulder & Upper Arm Other Spec Sites 841.8 Sprains & Strains Elbow & Forearm Other Spec Sites Office Visit 01/25/2015 3:15p Orthopedic Keanu Sanford 719.41 [facility] M.D. Shoulder Region 719.43 Pain Joint Forearm 726.10 Bursae & Tendon Disorders Shoulder Region Unspec 840.8 Sprains & Strains Shoulder & Upper Arm Other Spec Sites 841.8 Sprains & Strains Elbow & Forearm Other Spec Sites 726.19 Shoulder Disorders Other Spec 726.32 Epicondylitis Lateral Office Visit 01/11/2015 10:45a Orthopedic Kenau Sanford 719.41 [facility] M.D. Shoulder Region 719.41 Pain Joint Shoulder Region 719.43 Pain Joint Forearm 719.43 Pain Joint Forearm 726.10 Bursae & Tendon Disorders Shoulder Region Unspec 726.10 Bursae & Tendon Disorders Shoulder Region Unspec 813.41 FX Colles Lower End Closed 813.41 FX Colles Lower End Closed 840.8 Sprains & Strains Shoulder & Upper Arm Other Spec Sites 841.8 Sprains & Strains Elbow & Forearm Other Spec Sites 726.19 Shoulder Disorders Other Spec 726.32 Epicondylitis Lateral Plan of Treatment Future Appointment(s):06/17/2018 8:15 am - Vianey Guardado M.D. at [facility]06/06/2018 9:30 am - DARNELL Manuel at [facility]06/06/2018 9:30 am - NACHO Rodriguez at [facility]06/06/2018 9:30 am - Vianey Guardado M.D. at [facility]
--- OUTSIDE RECORDS SUMMARY | 2018-06-06 06:52 | XMS REPORT | Continuity of Care Document ---
:1970 External Reference #:[id number] Author Name Nettie Davidson Care Team Providers Name Role Phone Gurmeet Guy MD Primary Care Physician Unavailable Payers Type Date Identification Numbers Payment Provider Subscriber Policy Number: [id number] [employer] Omer Stone PayID: [id number] [address] [address] [place] [address] Effective: 2014 Policy Number: [employer] Omer Stone [id number] Onset: 2014 Group Number: [id number] [phone] [address] [address] PayID: [place] [address] Advance Directives Description No Information Available Problems Date Description Provider Status Onset: 03/13/2018 Localized, primary osteoarthritis of Vianey Guardado M.D. Active the pelvic region and [...] Unknown Lives With Alone Occupation [employer] ETOH Use Occasionally consumes alcohol Tobacco Use Start: Unknown End: Patient is a former smoker Quit 2013 Unknown Smoking Status Reviewed: 05/27/18 Patient is a former smoker Quit 2013 Exercise Type/Frequency Exercises regularly Allergies, Adverse Reactions, Alerts Description No Known Drug Allergies Medications Medication Date Status Form Strength Qnty SIG Indications Ordering Provider Lisinopril-[place] Active Tablets 30mg 1 by mouth Unknown [...] H/L Range Note CBC Auto Diff 05/21/2018 [facility] White Blood 7.3 10^3/uL N 3.5-10.[address] [place] [address] [phone] Red Blood Count 4.70 10^6/uL N 4.00-5.40 [...] Cells % 0.1 Basic Metabolic Panel 05/21/2018 [facility] Sodium 137 mmol/L N 135-[address] [place] [address] [phone] Chloride 102 mmol/L N 101-111 Co2 Carbon Dioxide 29 mmol/L N 22-32 Glucose 116 mg/dL High 70-100 Blood Urea Nitrogen 33 mg/dL High 6-24 Creatinine 1.55 mg/dL High 0.67-1.17 BUN/Creatinine Ratio 21.3 High 8-20 Calcium 9.9 mg/dL N 8.6-10.3 Egfr Non- 48.7 >60 Egfr 59.0 >60 1 Potassium 5.1 mmol/L High 3.5-5.0 Anion Gap 6 mmol/L N 2-11 Urine Culture And 05/21/2018 [facility] Urine Culture SEE RESULT 2, [address] [place], [place] [id number] [phone] 1 Because ethnic data is not always [...] 5 Kidney failure <15 (or dialysis) 2 [id number] 3 SEE RESULT BELOW Name: OMER STONE : [address]: Gurmeet Guy MD Acct: [id number] Unit: [id number] AGE: 47 Location: [facility] Re05/21/18 SEX: M Status: REG REF SPEC: [id number] [place]: 05/21/18-[address]: Gurmeet Guy MD REQ: [id number] RECD: 05/21/18-1323 EXPLICIT FAX#: [id number], [id number] STATUS: COMP OTHR DR: Vianey Guardado MD _ SOURCE: URINE SPDESC: ORDERED: Urine Culture COMMENTS: [id number] QUERIES: Urine Source: Random Procedure Result Reported Site Urine Culture Final 05/22/18- 1208 ML No Growth (<1,000 CFU/mL) * ML - Main Lab . END OF REPORT DEPARTMENT OF PATHOLOGY, [address] [place] [address] Angel Williamson M.D. Director [facility] # [id number] Procedures Description No Information Available Encounters Type [...] Epicondylitis Lateral Office Visit 01/11/2015 10:45a Orthopedic Keanu Sanford 719.41 Pain Joint Services [...]
--- OUTSIDE RECORDS SUMMARY | 2018-06-06 06:53 | XMS REPORT | Continuity of Care Document ---
:1970 External Reference #:[id number] Author Name Gurmeet Guy M.D. Address [address] [facility] [address] [place] [address] Care Team Providers Name Role Phone HCP/LW on file Primary Care Physician Unavailable Payers Type Date Identification Numbers Payment Provider Subscriber Effective: Policy Number: [facility] Excell[employer] Omer Stone 2017 [id number] Ind/Ppo/Hmo/Pos PayID: [id number] [address] [address] [place] [address] Advance Directives Description No Information Available Problems [...] (Virginia Martinez) and cousin's daughter (Kiera). 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 [employer] Work Status Currently [...] heavy drinker until he moved here from [place] in Recreational Drug Use 02/02/2014 Denies Drug Use Recreational Drug Use Former Drug User cocaine; stopped in , part of the reason for moving here from [place] Currently Active Patient is currently not sexually active Condom Use Uses Condoms Age [address] [place] [facility] 17 Years Old # Partners in a [...] One M25.50 Sopchak, Tablet By Sherrill Granado D.OBrayd Three Times A Day as Needed For Joint Pain Lisinopril-Corydon 06/08/2015 Active Tablets 20-12.5m 180tabs Take Two I10 Silcoff, chlorothiazide g Tablets By Sherrill Levi.DBrady Every Morning For High Blood Pressure Amitriptyline 06/08/2015 Active Tablets 10mg 100tabs Take One G47.00 Silcoff, HCL Tablet By Sherrill Levi M.D. 30-60 Minutes Before Bed For Sleep- May [...] One F41.9 Silcoff, Oxalate Tablet By Sherrill [email or web address] Every Day For Anxiety F41.1 Buspirone HCL 02/08/2016 Hx Tablets 10mg 180tabs Take Two Tablets F41.1 Silcoff, - By Mouth Three Gurmeet 05/21/2018 Times A Day For M.D. Anxiety Buspirone HCL 12/21/2015 Hx Tablets 10mg 120tabs 2 by mouth twice a F41.1 Silcoff, - day for anxiety Gurmeet 02/08/2016 M.D. Viagra 12/21/2015 Hx Tablets 100mg 6tabs 1/2-1 by mouth N52.9 Silcoff, - every day as Gurmeet 05/20/2018 needed for M.D. erectile dysfunction; max 1 dose/day Propranolol HCL 08/04/2015 Hx Tablets 40mg 30tabs Taje 1/2 Tablet By I10 Silemma, - Mouth Two Times A Gurmeet, 09/17/2015 Day For Blood M.D. Pressure And Anxiety F41.1 Buspirone HCL 06/08/2015 - Hx Tablets 10mg 60tabs Take 1+1/2 F41.1 Taniacomaite, 12/21/2015 Tablets By Kindra Levi Mouth Two Times A Day For Anxiety Buspirone HCL 03/30/2015 - Hx Tablets 10mg 60tabs 1/2 by mouth F41.1 Silcomaite, 06/08/2015 twice a day Kindra Levi for 1-2 weeks then increase to 1 pill 2x/day; for anxiety PT For Right 12/23/2014 - Hx evaluate and 719.41 Silcoff, Shoulder Pain 03/25/2015 treat, Kindra Levi And [...] 10/03/2014 Act le twice a day 09 Gurmeet, (gargle MBradyDBrady after use) 493.10 Spiriva 09/02/2014 - Hx Capsules 18mcg 10samples inhale the 786.09 Silcoff, Handihaler 10/14/2014 contents of Gurmeet, 1 capsule M.D. daily; try this after finishing Dulera 493.10 Lisinopril-Hydrochlorothiazide 09/02/2014 Hx Tablets 20-25mg 90tabs Take One I10 Malena, - Tablet By Gurmeet, 06/08/2015 Mouth M.D. Every Morning For High Blood Pressure Zolpidem Tartrate 06/19/2014 Hx Tablets 10mg 15tabs 1 by 780. Silcoff, - mouth 52 Gurmeet, 12/23/2014 every M.D. other night at bedtime as needed for sleep; you should only take this if you have 8 hours to sleep Lisinopril-Hydrochlorothiazide 05/11/2014 Hx Tablets 10-12.5m 30tabs 1 by 401. Malena, - g mouth 1 Gurmeet 09/02/2014 every M.DBrady morning for high blood pressure Flovent Diskus 05/11/2014 Hx Aerosol 250mcg/B 60units 1 puff 786. Malena, - list 2x/day; Gurmeet, 09/02/2014 karin Arguelles after use 493.10 Trazodone HCL 05/11/2014 - Hx Tablets 50mg 60tabs 1/2-2 by 780.52 Silcomaite, 05/29/2014 mouth every Kindra Levi night at bedtime as needed for sleep (take it 1/2-1hr before bed) Advair Diskus 03/09/2014 - Hx Aerosol 250-50mc 60units inhale 1 786.09 Malena, 05/11/2014 g/Dose puff twice Kindra Levi daily; gargle after use 493.10 Chantix 03/09/2014 - Hx Tablets 1mg 45tabs 1 pill every 305.1 Malena, 09/02/2014 morning and 1/2 Kindra Levi pill every late night/early paula (ideally after breakfast and supper); take w/ a lot of water No Active 02/02/2014 - Hx Unknown Medications 02/02/2014 Chantix 02/02/2014 - Hx Tablets 1mg 60tabs 1/2 pill once 305.1 Tainacomaite, 03/09/2014 daily for 3 Kindra Levi days then 1/2 pill twice daily for 4 days then 1 pill twice daily Immunizations CPT Code Status Date Vaccine Lot # [id number] Given 05/21/2018 Influenza Virus Vaccine, Quadrivalent, Split, [id number] Preservative Free 21002 Given 08/17/2017 Influenza Virus Vaccine, Quadrivalent, Split, [id number] Preservative Free 07567 Given 04/17/2016 Influenza Virus Vaccine, Quadrivalent, Split, [id number] Preservative Free 87660 Given 06/08/2015 Influenza Virus Vaccine, Quadrivalent, Split, [id number] Preservative Free 87406 Given 03/09/2014 Pneumococcal Immunization [id number] 17293 Given 03/09/2014 Influenza Virus Vaccine, Quadrivalent, Split, [id number] Preservative Free 94977 Given 02/15/2010 Adacel or Boostrix, TDaP Vital [...] Date Facility Test Result H/L Range Note Basic Metabolic Panel 02/06/2018 [facility] Sodium 136 mmol/L N 135- 145 [phone] Potassium 4.7 mmol/L N 3.5-5.0 Chloride 104 mmol/L N 101-111 Co2 Carbon Dioxide 26 mmol/L N 22-32 Anion Gap 6 mmol/L N 2-11 Glucose 102 mg/dL High 70-100 Blood Urea Nitrogen 27 mg/dL High 6-24 Creatinine 1.32 mg/dL High 0.67-1.17 BUN/Creatinine Ratio 20.5 High 8-20 Calcium 9.6 mg/dL N 8.6-10.3 Egfr Non- 58.7 >60 Egfr 71.0 >60 1 Laboratory test 02/06/2018 [facility] LDL Cholesterol Direct 92 mg/dL 2 finding [phone] Lipid Profile 02/06/2018 [facility] Triglycerides 666 mg/dL 3 (Trig/Chol/HDL) [phone] Cholesterol 261 mg/dL 4 HDL Cholesterol 36.5 mg/dL 5 LDL Cholesterol (SEE NOTE) mg/dL 6 Urine Micro Inhouse 08/17/2017 In House Ua WBC - 7 Ua RBC - Ua Casts - Ua Epi - Ua Other - Ua Glucose - Ua Bilirubin - Ua Ketones - Ua Specific [place] 1.020 Ua Blood - Ua PH 6.0 Ua Protein - Ua Urobilinogen - Ua Nitrite - Ua Leukocytes - Basic Metabolic Panel 04/17/2016 [facility] Sodium 137 mmol/L N 133- 145 [phone] Potassium 4.6 mmol/L N 3.5-5.0 Chloride 103 mmol/L N 101-111 Co2 Carbon Dioxide 30 mmol/L N 22-32 Anion Gap 4 mmol/L N 2-11 Glucose 106 mg/dL High 70-100 Blood Urea Nitrogen 22 mg/dL N 6-24 Creatinine 1.06 mg/dL N 0.67-1.17 BUN/Creatinine Ratio 20.8 High 8-20 Calcium 9.4 mg/dL N 8.6-10.3 Egfr Non- 76.3 N >60 Egfr 98.1 N >60 8 Urine Micro Inhouse 04/17/2016 In House Ua WBC - 9 Ua RBC - Ua Casts - Ua Epi - Ua Other - Ua Glucose - Ua Bilirubin - Ua Ketones - Ua Specific [place] 1.025 Ua Blood - Ua PH 6.0 Ua Protein - Ua Urobilinogen - Ua Nitrite - Ua Leukocytes - Urine Micro Inhouse 03/30/2015 In House Ua WBC - 10 Ua RBC - Ua Casts - Ua Epi - Ua Other - Ua Glucose - Ua Bilirubin - Ua Ketones - Ua Specific [place] 1.010 Ua Blood - Ua PH 6.0 Ua Protein - Ua Urobilinogen - Ua Nitrite - Ua Leukocytes - Basic Metabolic Panel 09/25/2014 [facility] Sodium 136 mmol/L N 133- 145 [phone] Potassium 3.7 mmol/L N 3.5-5.0 Chloride 102 mmol/L N 101-111 Co2 Carbon Dioxide 27 mmol/L N 22-32 Anion Gap 7 mmol/L N 2-11 Glucose 117 mg/dL High 70-100 Blood Urea Nitrogen 19 mg/dL N 6-24 Creatinine 0.85 mg/dL N 0.67-1.17 BUN/Creatinine Ratio 22.4 High 8-20 Calcium 9.1 mg/dL N 8.6-10.3 Egfr Non- 98.8 N >60 Egfr 127.1 N >60 11 Basic Metabolic Panel 06/05/2014 [facility] Sodium 136 mmol/L N 133- 145 [phone] Potassium 4.3 mmol/L N 3.5-5.0 Chloride 102 mmol/L N 101-111 Co2 Carbon Dioxide 27 mmol/L N 22-32 Anion Gap 7 mmol/L N 2-11 Glucose 104 mg/dL High 70-100 Blood Urea Nitrogen 22 mg/dL N 6-24 Creatinine 0.92 mg/dL N 0.67-1.17 BUN/Creatinine Ratio 23.9 High 8-20 Calcium 9.4 mg/dL N 8.6-10.3 Egfr Non- 90.7 N >60 Egfr 116.6 N >60 12 Lipid Profile 02/03/2014 [facility] Triglycerides 160 mg/dL N 13 (Trig/Chol/HDL) [phone] Cholesterol 169 mg/dL N 14 HDL Cholesterol 42.9 mg/dL N 15 LDL Cholesterol 94 mg/dL N 16 Laboratory test finding 02/03/2014 [facility] Uric Acid 6.2 mg/dL N 4.4-7.6 [phone] Basic Metabolic Panel 02/03/2014 [facility] Sodium 140 mmol/L N 133- 145 [phone] Potassium 4.2 mmol/L N 3.7-5.6 Chloride 106 mmol/L N 101-111 Co2 Carbon Dioxide 27 mmol/L N 22-32 Anion Gap 7 mmol/L N 2-11 Glucose 98 mg/dL N 70-100 Blood Urea Nitrogen 17 mg/dL N 6-24 Creatinine 0.83 mg/dL N 0.67-1.17 BUN/Creatinine Ratio 20.5 High 8-20 Calcium 9.3 mg/dL N 8.6-10.3 Egfr Non- 102.1 N >60 Egfr 131.3 N >60 17 CBC Auto Diff 02/03/2014 [facility] White Blood Count 9.5 10^3/uL N 4.8-10.8 [phone] Red Blood Count 4.53 10^6/uL N 4.0-5.4 [...] Bilirubin - Ua Ketones - Ua Specific [place] 1.005 Ua Blood - Ua PH 7.5 Ua Protein - Ua Urobilinogen - Ua Nitrite - Ua Leukocytes - 1 Because ethnic data is not always [...] 5 Kidney failure <15 (or dialysis) 2 Desirable: <100 Near Optimal: 100-129 Borderline High: 130-159 High: 160-189 Very High: >189 3 Desirable: <150 Borderline High: 150-199 High: 200-499 Very High: >500 4 Desirable: <200 Borderline High: 200-239 High: >239 5 Low: <40 Desirable: 40-60 High: >60 6 Unable to calculate LDL as triglyceride is > 400 7 void, clear, yellow 8 Because ethnic data is not always [...] Kidney failure <15 (or dialysis) 9 void, dark yellow 10 void, clear, yellow 11 Because ethnic data is not [...] 5 Kidney failure <15 (or dialysis) 12 Because ethnic data is not always readily [...] 15-29 5 Kidney failure <15 (or dialysis) 13 Desirable <150 Borderline high 150-199 High 200-499 Very High >500 14 Desirable <200 Borderline high 200-239 High >239 15 Low <40 Desirable: 40-60 High: >60 16 Desirable <100 Near Optimal 100-129 Borderline high 130-159 High 160-189 Very High >189 17 Because ethnic data is not always readily [...] dialysis) Procedures Date Code Description Status 05/21/2018 78034 Electrocardiogram Complete Completed 08/17/2017 25847 Electrocardiogram Complete Completed 01/30/2017 11155 X-Ray Wrist Three Views Completed 07/25/2016 63807 Electrocardiogram Complete Completed 06/08/2015 48906 Electrocardiogram Complete Completed 02/02/2014 79250 Bronchospasm Evaluation Pre & Post Completed 02/02/2014 21165 Electrocardiogram Complete Completed 02/02/2014 21737 X-Ray Chest Two Views Completed Encounters Type [...] Office Visit 08/17/2017 9:15a Main Office Gurmeet Guy, I10 Essential (primary) [...] of anus and rectum, unspecified 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 hypertension F41.1 Generalized anxiety disorder G47.00 Insomnia, unspecified K59.00 Constipation, unspecified Office Visit 12/21/2015 8:30a Main Office Gurmeet Guy, I10 Essential [...] am - Gurmeet Guy M.D. at Main [facility]7405/21/2018 - Gurmeet Guy M.D.Z01.818 Encounter for other preprocedural examinationComments:~Darya has longstanding, progressive and debilitating L hip [...] Unilateral primary osteoarthritis, left hipI10 Essential (primary) vcmpbmwvzemzJ15.1 Generalized anxiety plmjupnjB16.3 Chronic kidney disease, stage 3 (moderate)Z23 Encounter for immunizationComments:Encouraged flu vaccine wc was accepted. VIS provided.
[2018-06-06] MEDS ORDERED: Gabapentin CAP(*) 300 MG ONE (07:45)
[2018-06-06] MEDS ORDERED: Famotidine IV* 10 MG/ML 2 ML (20 mg) ONE (07:45)
[2018-06-06] MEDS ORDERED: Dexamethasone IV* 4 MG/ML 1 ML (4 MG) ONE (07:45)
[2018-06-06] MEDS ORDERED: celeCOXIB CAP* 100 MG ONE (07:45)
[2018-06-06] MEDS ORDERED: Scopolamine 1.5 mg* PATCH ONE (07:46)
[2018-06-06] MEDS ORDERED: ceFAZolin 2 GM PREMIX in ORs 2 GM/50 ML BAG IVPB ONE (07:46)
[2018-06-06] MEDS ORDERED: Bupivacaine 0.5% PF 10 ML VIAL INJ ONE (08:12)
[2018-06-06] MEDS ORDERED: fentaNYL* 50 MCG/ML 5 ML VIAL (250 MCG VIAL) ONE (08:40)
[2018-06-06] MEDS ORDERED: Rocuronium* 10 MG/ML VIAL ONE (08:41)
[2018-06-06] MEDS ORDERED: Propofol* 10 MG/ML 20 ML BTL ONE (08:41)
[2018-06-06] MEDS ORDERED: KETAMINE HCL* 50 MG/ML 10 ML VIAL ONE (08:41)
[2018-06-06] MEDS ORDERED: Midazolam* 1 MG/ML 5 ML VIAL (5 MG) ONE (08:41)
[2018-06-06] MEDS ORDERED: Lidocaine 2% PF * 5 ML VIAL ONE (08:41)
[2018-06-06] MEDS ORDERED: Naloxone* 0.4 MG/ML 1 ML VIAL IV PRN (08:51)
[2018-06-06] MEDS ORDERED: Morphine VIAL* 4 MG/ML VIAL (1 ml vial) IV PRN ×2 (08:51→12:46)
[2018-06-06] MEDS ORDERED: HYDROcodone/ACETAMIN 5-325 MG* 1 TAB PO PRN (08:51)
[2018-06-06] MEDS ORDERED: oxyCODONE/Acetamin 5/325 MG* TAB PO PRN ×2 (08:51→12:39)
[2018-06-06] MEDS ORDERED: PROCHLORPERAZINE INJ 5 MG/ML 2 ML VIAL IV PRN (08:51)
[2018-06-06] MEDS ORDERED: fentaNYL* 50 MCG/ML 2 ML VIAL (100 MCG VIAL) IV PRN (08:51)
[2018-06-06] MEDS ORDERED: EPHEDrine (Pressors)* 50 MG/ML VIAL ONE (09:44)
[2018-06-06] MEDS ORDERED: Phenylephrine INJ* 10 MG/ML 1 ML VIAL (10 MG) ONE (09:49)
[2018-06-06] MEDS ORDERED: Glycopyrrolate IV* 0.2 MG/ML 1 ML VIAL ONE (09:50)
[2018-06-06] MEDS ORDERED: fentaNYL* 50 MCG/ML 2 ML VIAL (100 MCG VIAL) ONE (11:32)
[2018-06-06] MEDS ORDERED: Ondansetron INJ* 2 MG/ML VIAL ONE (11:46)
[2018-06-06] MEDS ORDERED: Neostigmine Methylsulfate* 2 MG/2 ML SYRINGE ONE (11:54)
[2018-06-06] MEDS ORDERED: Magnesium Hydroxide LIQ* 30 ML UDC PO PRN (12:39)
[2018-06-06] MEDS ORDERED: oxyCODONE TAB* 5 MG TAB PO PRN (12:39)
[2018-06-06] MEDS ORDERED: diPHENhydraMINE IV* 50 MG/ML 1 ml VIAL (BENADRYL) IV PRN (12:46)
[2018-06-06] MEDS ORDERED: Cyclobenzaprine TAB* 10 MG PO PRN (12:46)
[2018-06-06] MEDS ORDERED: Ondansetron INJ* 2 MG/ML VIAL IV PRN (12:46)
[2018-06-06] MEDS ORDERED: Polyethylene Glycol 3350* 17 GM PACKET PO PRN (12:46)
[2018-06-06] MEDS ORDERED: Bisacodyl SUPP* 10 MG SUPP PR PRN (12:46)
[2018-06-06] MEDS ORDERED: traMADol TAB* 50 MG PO PRN (12:46)
[2018-06-06] MEDS ORDERED: oxyCODONE/Acetamin 5/325 MG* TAB ONE (13:39)
[2018-06-06] MEDS: oxyCODONE/Acetamin 5/325 MG* TAB PO PRN ×3 (13:40→22:24)
[2018-06-06] MEDS: Acetaminophen TAB* 325 MG PO SCH ×2 (14:57→22:05)
--- NOTE | 2018-06-06 15:46 | PN ---
Progress Note - Progress Note Date of Service: 06/06/18 Note: resting comfortably in bed with minimal complaints of pain. denies SOB/chest pain. 2+ DP pulse, intact sensation. dressing c/d/i
[2018-06-06] MEDS: ceFAZolin 1 GM ADVAN(*) 1 GM in NS 0.9% 50 ML* 50 ML IVPB SCH (18:08)
[2018-06-06] MEDS ORDERED: amLODIPine TAB* 5 MG PO SCH ×2 (21:00→22:30)
[2018-06-06] MEDS ORDERED: Amitriptyline TAB* 10 MG PO SCH (21:00)
[2018-06-06] MEDS ORDERED: Zolpidem TAB* 10 MG PO SCH (21:00)
[2018-06-06] MEDS: Docusate CAP* 100 MG PO SCH (21:50)
[2018-06-06] MEDS: busPIRone TAB* 10 MG PO SCH (21:50)
[2018-06-06] MEDS: Propranolol TAB* 20 MG PO SCH (21:50)
[2018-06-06] MEDS: Magnesium Hydroxide LIQ* 30 ML UDC PO SCH (21:51)
[2018-06-06] MEDS ORDERED: Thiamine IV* 100 MG/ML 2 ML VIAL IM ONE (22:01)
[2018-06-06] MEDS ORDERED: LORazepam TAB(*) 1 MG PO SCH (23:00)
--- NOTE | 2018-06-06 23:47 | CONS ---
[facility] MEDICINE CONSULTATION REPORT: DATE OF CONSULT: 06/06/18 PROVIDER: Elizabeth Pickard NP ATTENDING PHYSICIAN: Dr. Guardado. CONSULTING PHYSICIAN: Dr. Elsie Darby (dictated by Elizabeth Pickard NP). REASON FOR CONSULT: Co-management of chronic medical condition. HISTORY OF PRESENT ILLNESS: Mr. Stone is a 47-year-old male with a past medical history significant for hypertension, prediabetes, depression, and anxiety, who presented to [facility] [place] for an elective left total hip arthroplasty with Dr. Guardado. Please refer to H and P from NACHO Vasquez, for complete details. In brief, the patient is a 47-year-old male with continued complaints of left hip pain, failed conservative treatment, and elected to proceed with an elective left total hip arthroplasty with Dr. Guardado. In the immediate postoperative period, the patient has no complaints. He denies any fever or chills. Denies any nausea, vomiting, or diarrhea. Denies any abdominal pain. Denies any chest pain or shortness of breath. Denies any urinary frequency or urgency. Denies cough or congestion. He does report soreness to the left hip postoperatively. PAST MEDICAL HISTORY: Significant for: 1. Hypertension. 2. Depression. 3. Anxiety. 4. Alcohol addiction. 5. COPD. PAST SURGICAL HISTORY: He had oral surgery. CURRENT HOME MEDICATIONS: 1. Lisinopril/hydrochlorothiazide 20/12.5 mg. 2. Escitalopram 20 mg p.o. daily. 3. MiraLAX 17 g daily. 4. Ambien 10 mg p.o. at bedtime. 5. Amlodipine 5 mg p.o. at bedtime. 6. Amitriptyline 30 mg p.o. at bedtime. 7. Propranolol 20 mg p.o. b.i.d. 8. Buspirone 20 mg p.o. b.i.d. 9. Ibuprofen 800 mg p.o. t.i.d. ALLERGIES: No known drug allergies. FAMILY HISTORY: Father with a history of quadruple bypass, grandparents with history of diabetes, father with history of pancreatic cancer. SOCIAL HISTORY: The patient reports that he quit smoking 5 years ago. Prior to that, he smoked a pack and a half a day for 20 plus years. He does report drinking 6 shots of vodka daily. He uses marijuana occasionally. He is single. He lives alone. Surrogate decision maker is his parents if he is unable to make his own decisions. He is a full code. REVIEW OF SYSTEMS: There was no documented fever. No unintended weight loss. Denies any chest pain or edema. Denies any cough, congestion, hemoptysis, or shortness of breath. Denies any nausea, vomiting, or diarrhea. Denies any abdominal pain. Denies any gross hematuria or dysuria. Denies any focal weakness or sensory loss. Denies any visual complaints. Denies any dysphagia. Denies any arthralgias or myalgias. No rashes or lesions. Denies any psychosis or anxiety. PHYSICAL EXAM: Vital Signs: Blood pressure is 122/66, temperature 97.9, heart rate was 77, respirations 16, O2 saturation 97% on room air. General: Mr. Stone is a 47-year-old male. He appears well-developed, resting in the bed in his room. He does not appear to be in acute distress. HEENT: Head is atraumatic, normocephalic. Eyes: EOMs are intact. Sclerae are anicteric and not pale. Oral mucosa appeared to be moist. Neck is supple. Lungs are clear to auscultation bilaterally. They are diminished in the bases. There are no wheezes, rales, or rhonchi. Cardiac: S1, S2. Regular rate and rhythm. There are no murmurs, rubs, or gallops. Abdomen is soft and nontender. Bowel sounds are present x4. Extremities: He has got a dressing intact to his left hip. There is no blood noted to the dressing. Pedal pulses are +2 bilaterally. No calf tenderness. Sensation is intact. Neurologic: He is awake, alert, and oriented x3. There are no gross focal deficits. Speech is clear. Thought process is intact. Skin: He has a dry and intact dressing noted to the left hip. There are no open areas or wounds noted. DIAGNOSTIC STUDIES/LAB DATA: On 05/21/18, WBCs were 7.3, RBCs 4.70, hemoglobin was 15.1, hematocrit was 43, platelet count was 274. INR was 0.84 and aPTT was 32.8. Sodium 137, potassium was 5.1, chloride 102, carbon dioxide was 29, anion gap was 6, BUN was 33, creatinine 1.55, calcium 9.9. Urine on was yellow, clear; pH was 7; specific gravity 1.009; urine protein, ketones, blood, nitrites, bilirubin, urobilinogen, leukocyte esterase, and urine glucose were all negative. IMPRESSION AND PLAN: Mr. Stone is a 47-year-old male with past medical history significant for hypertension, hyperlipidemia, depression, and anxiety, who presented for an elective left total hip with Dr. Guardado. In the immediate postoperative period, he has no complaints. Our recommendations are as follows: 1. Status post left hip arthroplasty, management per Orthopedics. PT/OT per Orthopedics. Bowel regimen per Orthopedics. 2. Hypertension. I would hold his hydrochlorothiazide at this time as his blood pressure has been soft as well as in the 100s. I would continue his lisinopril 20 mg with holding parameters to hold for systolic blood pressure less than 120. He can continue his amlodipine. Again withhold for systolic blood pressure less than 120. 3. Depression and anxiety. He can continue his Lexapro as previously prescribed. He can continue amitriptyline, buspirone as previously prescribed. 4. Alcohol abuse. I will place him on WAM protocol and monitor for withdrawal symptoms. 5. FEN. He can have a heart-healthy, low-sodium diet, caffeine okay. 6. Code status. He is a full code. 7. DVT prophylaxis. As per Orthopedics. TIME SPENT: Time spent on this consultation was 45 minutes, greater than half of that time was spent with the patient obtaining my history and physical, the other half the time was spent going over my plan of care and implementing my plan of care. I have discussed this with my attending, Dr. Elsie Darby, and she is in agreement with my plan. ELIZABETH PICKARD, DAVID [id number]/[facility] #: [id number] CALEB
[2018-06-07] MEDS: ceFAZolin 1 GM ADVAN(*) 1 GM in NS 0.9% 50 ML* 50 ML IVPB SCH ×2 (03:42→11:04)
[2018-06-07] MEDS: oxyCODONE/Acetamin 5/325 MG* TAB PO PRN ×3 (03:44→12:57)
[2018-06-07 06:15] LABS: Hematocrit 33 % (42-52); Hemoglobin 11.1 g/dl (14.0-18.0); Mean Platelet Volume 8.3 fL (7.4-10.4); Platelet Count 222 10^3/ul (150-450)
[2018-06-07] MEDS: Acetaminophen TAB* 325 MG PO SCH (06:19)
[2018-06-07 06:28] LABS: EGFR Non-African American 66.1 (>60)
[2018-06-07] MEDS: Propranolol TAB* 20 MG PO SCH (08:17)
[2018-06-07] MEDS: Docusate CAP* 100 MG PO SCH (08:17)
[2018-06-07] MEDS: busPIRone TAB* 10 MG PO SCH (08:18)
[2018-06-07] MEDS: Magnesium Hydroxide LIQ* 30 ML UDC PO SCH (08:19)
[2018-06-07] MEDS ORDERED: Apixaban* 2.5 MG TAB PO SCH (09:00)
[2018-06-07] MEDS ORDERED: Lisinopril TAB* 10 MG PO SCH ×2 (09:00)
[2018-06-07] MEDS ORDERED: Multivitamins/Minerals TAB PO SCH (09:00)
[2018-06-07] MEDS ORDERED: Hydrochlorothiazide TAB* 25 MG PO SCH (09:00)
[2018-06-07] MEDS ORDERED: Thiamine TAB* 100 MG TAB PO SCH (09:00)
[2018-06-07] MEDS ORDERED: Folic Acid TAB* 1 MG PO SCH (09:00)
[2018-06-07] MEDS ORDERED: Citalopram TAB* 40 MG PO SCH (09:00)
--- NOTE | 2018-06-07 09:15 | OP ---
DATE OF OPERATION: 06/06/18 - ROOM #342 DATE OF : 74 ATTENDING SURGEON: Vianey Guardado MD HOME VISIT FIELD CARE MANAGER: NACHO Manuel. Ms. Coats did help throughout the procedure with preparation of the leg, wound retraction, manipulation of the hip, and wound closure. ANESTHESIOLOGIST: Dr. Matta. ANESTHESIA: General. PRE-OP DIAGNOSIS: Severe end-stage degenerative osteoarthritis of the left hip joint. POST-OP DIAGNOSIS: Severe end-stage degenerative osteoarthritis of the left hip joint with acetabular subchondral cyst. OPERATIVE PROCEDURE: Left total hip arthroplasty with femoral head autograft bone grafting of the acetabular subchondral cyst. COMPLICATIONS: None. ESTIMATED BLOOD LOSS: 300 cc. SPECIMEN: Femoral head and acetabular reaming sent to pathology. HARDWARE USED: This is Likely uncemented total hip arthroplasty hardware. For the cup, a 54E Tritanium cluster hole shell. A single 20-mm screw. For the liner, a Trident X3 0-degree 36E liner. For the stem, an Accolade II, size 5 with a 127- degree neck angle. For the head, a 36 -5 Biolox delta ceramic V40 femoral head. BRIEF HISTORY/INDICATION: Mr. Stone is a 47-year-old gentleman with years of increasingly severe left hip pain. Radiographs showed dogy-aw-ydcg arthritis with subchondral cyst formation. He failed conservative treatment with antiinflammatories, pain medication, and physical therapy. Due to continued pain and decreased quality of life, he elected to undergo a left total hip arthroplasty. Informed consent was obtained from the patient. He understood the risks of surgery included but were not limited to bleeding, infection, damage to nearby structures, continued pain, need for further surgery, intraoperative fracture, nerve palsy, hardware failure or loosening, dislocation , leg length discrepancy, stroke, heart attack, blood clot, and . He wished to proceed. INTRAOPERATIVE FINDINGS: Intraoperatively, the patient was noted to have end- stage arthritis with complete loss of cartilage along the femoral head and acetabulum. He had extensive osteophyte formation. Superior weightbearing dome of the acetabulum had a subchondral cyst, which measured approximately 0.5 cm in diameter. This was packed with femoral head allograft. DESCRIPTION OF PROCEDURE: Mr. Stone was identified in the preanesthesia unit. His left lower extremity was marked as the correct operative site. Informed consent was signed and placed in the chart. The patient was taken to the operating room and placed under general anesthesia. A Barker catheter was placed. The patient was placed in the right lateral decubitus position on the peg board. All bony prominences were well padded. Left lower extremity was prepped and draped in the usual sterile fashion. Preop time-out was made to correctly identify the patient, side, and site. Appropriate perioperative antibiotics were given within 1 hour of incision. A posterior hip incision was made with a 10-blade and carried down to the lateral fascia layer. Lateral fascia layer was incised in line with the skin incision. Charnley retractor was placed. The piriformis and conjoint tendons were identified and elevated off the posterolateral femur using electrocautery. These were tagged with #5 Ethibond. Next, electro-cautery was used to make a standard capsular flap and this was also tagged with #5 Ethibond. The hip was carefully dislocated. Lesser troch to center of the femoral head measured 55 mm. Oscillating saw was used to make the appropriate femoral neck cut. The femoral head was carefully removed. The femur was retracted anteriorly. After appropriate placement of retractors, the acetabulum was well visualized. The acetabulum was sequentially reamed up to a size 53. The 53 reamer obtained a bleeding subchondral bone bed. A superior weightbearing dome cyst of 0.5 cm diameter was cleared of debris with a curette. This was packed with femoral head allograft. A 53 trial had excellent fit and stability. The final implant chosen was a 54E Tritanium cluster hole shell. This was impacted into the acetabulum without difficulty. The cup was stable with appropriate anteversion and abduction angle. A single screw was placed in the superoposterior quadrant for extra stability. The final insert chosen was a Trident X3 0-degree 36E liner. This was impacted into the acetabular cup. Stability of the liner was checked and rechecked and noted to be stable. Next, attention was turned to preparation of the femoral shaft. A canal finder was used to enter the femur. Femur was sequentially broached up to a size 5. A size 5 broach had excellent fit and appropriate anteversion. A 127 neck trial with a 36 +0 head trial was placed. Lesser troch to center of the femoral head measured 60 mm. Therefore, a 36 -5 femoral head trial was chosen. Lesser troch to center of the femoral head measured 55 mm. The hip was reduced and taken through range of motion. The hip was stable in all positions. There was good soft tissue tension and appropriate leg lengths. The hip was carefully dislocated and all trials were removed. Final implant chosen was an Accolade II, size 5 with a 127-degree neck angle. This was impacted into the femoral canal without difficulty. The stem was stable with appropriate anteversion. A 36 -5 ceramic Biolox delta femoral head was chosen as the final implant. This was impacted onto the femoral neck. Final lesser troch to center of the femoral head measurement was 55 mm. The hip was reduced and taken through range of motion. The hip was stable in all positions. There was good soft tissue tension and appropriate leg lengths. The hip was copiously irrigated with sterile saline. Previously tagged capsule and tendons were reapproximated to the posterolateral femur through 2 trochanteric drill holes. The lateral fascia layer was closed using interrupted #1 Vicryl. The rest of the incision was closed in a layered fashion using 0 and 2-0 Vicryl. Skin was closed using running 3-0 Monocryl and Dermabond. Sterile Adaptic, 4x4's, and paper tape were used to cover the incision. The patient's anesthesia was reversed without difficulty and he was taken to the PACU in stable condition. [id number]/[facility] #: [id number] MTDD
--- NOTE | 2018-06-07 14:32 | PN ---
Progress Note - Progress Note Date of Service: 06/07/18 SOAP: Subjective: []Patient seen at bedside, eating lunch, feeling well. Pain well managed. Denies SOB, CP, Paliptations or dizziness. Is hoping to go home thisafternoon after PT Objective: [] Vital Signs Temp 98.1 F 06/07/18 07:54 Pulse 62 06/07/18 07:54 Resp 16 06/07/18 12:57 BP 110/61 06/07/18 07:54 Pulse Ox 99 06/07/18 07:54 Intake & Output 06/06/18 06/07/18 06/07/18 18:59 06:59 18:59 Intake Total 2530 2435 450 Output Total 275 3250 500 Balance 2255 -815 -50 Weight 207 lb Intake: IV Fluids 2049 980 LR 2000 980 NS 50ML, Cefazolin 2G 50 IVPB 55 ABX - CEFAZOLIN 55 Oral 480 1400 450 Output: Urine 500 Barker 275 3250 Other: Estimated Void Medium Laboratory Results - last 24 hr 06/07/18 06/07/18 05:48 05:48 Hgb 11.1 L Hct 33 L Plt Count 222 MPV 8.3 Sodium 130 L Potassium 4.5 Chloride 102 Carbon Dioxide 25 Anion Gap 3 BUN 23 Creatinine 1.19 H Est GFR ( Amer) 80.0 Est GFR (Non-Af Amer) 66.1 BUN/Creatinine Ratio 19.3 Glucose 145 H Calcium 8.5 L Left hip dressings dry and intact calf NT and soft +DF left ankle sensation intact distally Assessment: []s/p LTH arthroplasty POD #1 Plan: []PT this afternoon WBAT LLE Eliquis 2.5 mg BID x 30 days Percocet for pain Discharge home later today Follow up in 10-[address] Guardado
[2018-06-07 15:58] VITALS: BP 102/54
--- NOTE | 2018-06-08 05:20 | DS ---
AMENDED REPORT NOW INCLUDES DESIGNATED COSIGNER DISCHARGE SUMMARY: DATE OF ADMISSION: 06/06/18 DATE OF DISCHARGE: 06/07/18 ATTENDING PHYSICIAN: Vianey Guardado MD * (DICTATED BY NACHO HERNDON) ADMISSION DIAGNOSIS: Severe end-stage degenerative osteoarthritis, left hip joint. 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 SURGERY PERFORMED: Left total hip arthroplasty with femoral head autograft, bone grafting to acetabular subchondral cyst. HOSPITAL COURSE: The patient is a 47-year-old male with increasingly severe left hip pain. His x-rays revealed [id number] arthritis with a subchondral cyst formation noted. He failed conservative management with antiinflammatories , pain medication, physical therapy. He elected to proceed with surgical intervention and was taken to the operating room under the care of Dr. Vianey Guardado on the date of 06/06/18 for the aforementioned procedure. He tolerated the procedure well and left the operating room in stable condition. Postoperatively, he progressed satisfactorily with physical therapy and occupational therapy goals. His pain was minimal during his postoperative stay. He had no postoperative complications and was found to be stable for discharge to home on the date of 06/07/18. CONDITION ON DISCHARGE: The patient is afebrile. His vital signs are stable. His incision is healing without evidence of infection. His calf is soft and nontender. His neurovascular status is intact distally. PLAN: The patient will be discharged to home. He will participate with outpatient physical therapy. He is provided with a prescription of Eliquis 2.5 mg p.o. b.i.d. for 30 days for postoperative DVT prophylaxis. He was provided with a prescription of Percocet 5/325 mg one q. 3 hours p.r.n. pain. He will follow up in the office as scheduled with Dr. Guardado in 10 to 14 days. NACHO HERNDON [id number]/CPS #: [id number] MTDD
[2018-06-09] MEDS ORDERED: Scopolamine PATCH Remove* 1 NOTE MISC PATCH OFF ONE (06:00)
== END 2018-06-07 16:30 | disposition home or self-care (01) | DRG 301 ==
LOC: AA 06:49 → SSU 12:39
PROVIDERS: ADMIT Orthopaedic Surgery Adult Reconstructive Orthopaedic Surgery; ATTEND Orthopaedic Surgery Adult Reconstructive Orthopaedic Surgery
PROC: 0QU507Z Supplement Left Acetabulum with Autologous Tissue Substitute, Open Approach (ICD-10-PCS; 2018-06-06)
PROC: 0SRB04A Replacement of Left Hip Joint with Ceramic on Polyethylene Synthetic Substitute, Uncemented, Open Approach (ICD-10-PCS; principal; 2018-06-06 09:00)
DX: M16.12 Unilateral primary osteoarthritis, left hip (principal); M85.68 Other cyst of bone, other site; E78.00 Pure hypercholesterolemia, unspecified; J44.9 Chronic obstructive pulmonary disease, unspecified; F41.1 Generalized anxiety disorder; I12.9 Hypertensive chronic kidney disease with stage 1 through stage 4 chronic kidney disease, or unspecified chronic kidney disease; N18.3 Chronic kidney disease, stage 3 (moderate); E66.3 Overweight; R73.03 Prediabetes; F90.9 Attention-deficit hyperactivity disorder, unspecified type; F32.9 Major depressive disorder, single episode, unspecified; F10.10 Alcohol abuse, uncomplicated; Y90.9 Presence of alcohol in blood, level not specified; M25.752 Osteophyte, left hip; Z83.3 Family history of diabetes mellitus; Z82.49 Family history of ischemic heart disease and other diseases of the circulatory system; Z82.61 Family history of arthritis; Z80.42 Family history of malignant neoplasm of prostate; Z87.891 Personal history of nicotine dependence; Z68.33 Body mass index [BMI] 33.0-33.9, adult
CPT/HCPCS: 36415; 72170; 80048; 85014; 85018; 85049; A9270-GY; J0690; J1100; J2250; J2405; J2704; J3010; J3411